=== PATIENT | male | born 1960 | race African-American/Black ===

== ENCOUNTER 2017-12-02 18:07 | Emergency (ER) | payer BC, OTHER ==
[2017-12-02] MEDS ORDERED: NORMAL SALINE 1000 ML 1,000 ML IV PRN (18:54)
--- NOTE | 2017-12-02 18:56 | ER Document Report ---
ED Medical Screen (RME) - General Chief Complaint: High Blood Sugar Stated Complaint: BLOOD SUGAR ISSUE Time Seen by Provider: 12/02/17 18:54 Notes: 57 years old male with history of diabetes, uncontrolled blood sugar, has been taking 3 tablets of glyburide 4 mg a day, he was prescribed only take 1. In spite of that sugar was 550 prior to coming to the ED, in the ER it was 350. Has no constitutional symptoms except frequency of urination. TRAVEL OUTSIDE OF THE [place] IN LAST 30 DAYS: No - Related Data Allergies/Adverse Reactions: aspirin Allergy (Verified 12/02/17 18:18) azithromycin [From Zithromax Z-Ranjith] Allergy (Verified 12/02/17 18:18) lisinopril Allergy (Verified 12/02/17 18:18) metformin Allergy (Verified 12/02/17 18:18) ibuprofen [From Motrin] Adverse Reaction (Intermediate, Verified 12/02/17 18:10) Edema Past Medical History - Social History Chew tobacco use (# tins/day): No Frequency of alcohol use: None - Past Medical History Cardiac Medical History: Reports: Hx Hypertension Endocrine Medical History: Reports: Hx Diabetes Mellitus Type 2 Renal/ Medical History: Denies: Hx Peritoneal Dialysis Psychiatric Medical History: Reports: Hx Anxiety Physical Exam - Vital signs Vitals: Temp Pulse Resp BP Pulse Ox 99.1 F 70 16 128/73 H 97 12/02/17 18:23 12/02/17 18:23 12/02/17 18:23 12/02/17 18:23 12/02/17 18:23 Course - Vital Signs Vital signs: Temp Pulse Resp BP Pulse Ox 99.1 F 70 16 128/73 H 97 12/02/17 18:23 12/02/17 18:23 12/02/17 18:23 12/02/17 18:23 12/02/17 18:23 Doctor's Discharge - Discharge Referrals: LULÚ VU PA-C [Primary Care Provider] - Follow up as needed
[2017-12-02 19:45] LABS: APPEARANCE,URINE CLEAR; BILIRUBIN,URINE NEGATIVE (NEGATIVE); COLOR,URINE STRAW; GLUCOSE, URINE >=500 mg/dL (NEGATIVE); KETONES,URINE NEGATIVE (NEGATIVE); LEUKOCYTE ESTERASE,URINE NEGATIVE (NEGATIVE); NITRITE,URINE NEGATIVE (NEGATIVE); PROTEIN,URINE NEGATIVE (NEGATIVE); URINE SPECIFIC GRAVITY 1.023; UROBILINOGEN,URINE NEGATIVE mg/dL (<2.0)
--- NOTE | 2017-12-02 19:48 | ER Document Report ---
ED Blood Sugar Problem - General Chief Complaint: High Blood Sugar Stated Complaint: BLOOD SUGAR ISSUE Time Seen by Provider: 12/02/17 18:54 Notes: Patient is a 57-year-old male comes emergency department for chief complaint of high blood sugar levels, states he has been averaging in the 500s this week, he has frequent urination but he denies nausea vomiting, abdominal pain, shortness of breath, chest pain, fever, or any other sick symptoms. He states he is on glimepiride 4 mg daily, he is taking 3 a day at times. He states he used to be on metformin but had kidney failure with this and was taken off. He has never been on insulin. He sees Dr. Heard. Remaining medical history includes hypertension, depression, on Abilify. Patient admits that his diet over the past week and even month has been poor and he has eaten a lot of things that " he should not". TRAVEL OUTSIDE OF THE [place] IN LAST 30 DAYS: No - Related Data Allergies/Adverse Reactions: aspirin Allergy (Verified 12/02/17 18:18) azithromycin [From Zithromax Z-Ranjith] Allergy (Verified 12/02/17 18:18) lisinopril Allergy (Verified 12/02/17 18:18) metformin Allergy (Verified 12/02/17 18:18) ibuprofen [From Motrin] Adverse Reaction (Intermediate, Verified 12/02/17 18:10) Edema Past Medical History - General Information source: Patient - Social History Smoking Status: Never Smoker Chew tobacco use (# tins/day): No Frequency of alcohol use: None Lives with: Family Family History: DM - Mother Patient has suicidal ideation: No Patient has homicidal ideation: No - Past Medical History Cardiac Medical History: Reports: Hx Hypertension Endocrine Medical History: Reports: Hx Diabetes Mellitus Type 2 Renal/ Medical History: Denies: Hx Peritoneal Dialysis Psychiatric Medical History: Reports: Hx Anxiety - Immunizations Hx Diphtheria, Pertussis, Tetanus Vaccination: Yes Hx Pneumococcal Vaccination: 04/05/14 Review of Systems - Review of Systems Constitutional: See HPI EENT: No symptoms reported Cardiovascular: No symptoms reported Respiratory: No symptoms reported Gastrointestinal: No symptoms reported Genitourinary: See HPI Male Genitourinary: No symptoms reported Musculoskeletal: No symptoms reported Skin: No symptoms reported Hematologic/Lymphatic: No symptoms reported Neurological/Psychological: No symptoms reported Physical Exam - Vital signs Vitals: Temp Pulse Resp BP Pulse Ox 99.1 F 70 16 128/73 H 97 12/02/17 18:23 12/02/17 18:23 12/02/17 18:23 12/02/17 18:23 12/02/17 18:23 - Notes Notes: GENERAL: Alert, interacts well. No acute distress. HEAD: Normocephalic, atraumatic. EYES: Pupils equal, round, and reactive to light. Extraocular movements intact. ENT: Oral mucosa moist, tongue midline. NECK: Full range of motion. Supple. Trachea midline. LUNGS: Clear to auscultation bilaterally, no wheezes, rales, or rhonchi. No respiratory distress. HEART: Regular rate and rhythm. No murmur ABDOMEN: Soft, non-tender. Non-distended. Bowel sounds present in all 4 quadrants. EXTREMITIES: Moves all 4 extremities spontaneously. No edema, normal radial and dorsalis pedis pulses bilaterally. No cyanosis. BACK: no cervical, thoracic, lumbar midline tenderness. No saddle anesthesia, normal distal neurovascular exam. NEUROLOGICAL: Alert and oriented x3. Normal speech. [cranial nerves II through XII grossly intact]. PSYCH: Normal affect, normal mood. SKIN: Warm, dry, normal turgor. No rashes or lesions noted. Course - Re-evaluation Re-evalutation: Patient is very well-appearing and pleasant on exam. Vital signs unremarkable. No current symptoms reported. CBC unremarkable. Urine shows glucose but is otherwise unremarkable. Chemistry shows hyperglycemia without acidosis. Venous blood gas unremarkable. A1c is very elevated. Patient was given insulin, IV fluids. Blood glucose is downtrending. Discussed with patient. He states he is ready to leave. He does have close follow-up with his primary care. He was given copy of his labs, advised to avoid carbohydrates, he admits he has been eating a lot of carbohydrates. Discussed return precautions, patient states understanding and agreement. - Vital Signs Vital signs: Temp Pulse Resp BP Pulse Ox 98.6 F 59 L 18 123/66 97 12/02/17 22:25 12/02/17 22:25 12/02/17 22:25 12/02/17 22:25 12/02/17 22:25 - Laboratory Result Diagrams: 12/02/17 19:57 12/02/17 19:57 Laboratory results interpreted by me: 12/02/17 12/02/17 12/02/17 18:44 19:19 19:57 RBC 4.33 L Hgb 12.1 L Hct 35.9 L RDW 14.8 H Sodium Glucose POC Glucose 337 H Hemoglobin A1c % Total Protein Urine Glucose (UA) >=500 H 12/02/17 12/02/17 12/02/17 19:57 19:57 21:30 RBC Hgb Hct RDW Sodium 136.6 L Glucose 320 H POC Glucose 281 H Hemoglobin A1c % 13.5 H Total Protein 8.5 H Urine Glucose (UA) Discharge - Discharge Clinical Impression: Hyperglycemia Condition: Stable Disposition: HOME, SELF-CARE Additional Instructions: You have been given IV fluids and insulin tonight. Your diabetes needs better control. Take your glimepiride as prescribed daily, avoid foods with carbohydrates, follow-up with your primary care tomorrow for additional evaluation and management. Return if you worsen including vomiting, abdominal pain, dizziness, fever, or any other concerning or worsening symptoms. Referrals: EARL HEARD MD [Primary Care Provider] - Follow up tomorrow
[2017-12-02 20:32] LABS: ABSOLUTE BASOPHILS # (AUTO) 0.1 10^3/uL (0.0-0.2); ABSOLUTE EOSINOPHILS # (AUTO) 0.1 10^3/uL (0.0-0.6); ABSOLUTE LYMPHOCYTES (AUTO) 2.9 10^3/uL (0.5-4.7); ABSOLUTE MONOCYTES (AUTO) 0.8 10^3/uL (0.1-1.4); ABSOLUTE NEUT (AUTO) 6.1 10^3/uL (1.7-8.2); BASOPHILS % (AUTO) 0.6 % (0-2); EOSINOPHILS % (AUTO) 1.1 % (0-6); HEMATOCRIT 35.9 % (37.9-51.0); HEMOGLOBIN 12.1 g/dL (13.5-17.0); LYMPHOCYTES % (AUTO) 29.1 % (13-45); MEAN CORPUSCULAR HGB CONC 33.8 g/dL (32.0-36.0); MEAN CORPUSCULAR VOLUME 83 fl (80-97); MONOCYTES % (AUTO) 7.7 % (3-13); PLATELET COUNT 331 10^3/uL (150-450); RED BLOOD COUNT 4.33 10^6/uL (4.35-5.55); RED CELL DISTRIBUTION WIDTH 14.8 % (11.5-14.0); SEGMENTED NEUTROPHILS % (AUTO) 61.5 % (42-78); TOTAL CELLS COUNTED % (AUTO) 100 %
[2017-12-02 20:35] LABS: VENOUS BLOOD BASE EXCESS -2.9 mmol/L; VENOUS BLOOD HCO3 22.6 mmol/L (20-32); VENOUS BLOOD PCO2 41.8 mmHg (35-63); VENOUS BLOOD PH 7.35 (7.30-7.42)
[2017-12-02 20:57] LABS: ALANINE AMINOTRANSFERASE 34 U/L (21-72); ALBUMIN 4.2 g/dL (3.5-5.0); ALKALINE PHOSPHATASE 102 U/L (38-126); ANION GAP 13 (5-19); ASPARTATE AMINO TRANSFERASE 30 U/L (17-59); BILIRUBIN,DIRECT 0.3 mg/dL (0.0-0.4); BILIRUBIN,TOTAL 0.3 mg/dL (0.2-1.3); BLOOD UREA NITROGEN 20 mg/dL (7-20); CALCIUM 9.4 mg/dL (8.4-10.2); CARBON DIOXIDE 24 mmol/L (22-30); CHLORIDE 100 mmol/L (98-107); GLUCOSE 320 mg/dL (75-110); POTASSIUM 4.2 mmol/L (3.6-5.0); SODIUM 136.6 mmol/L (137-145); TOTAL PROTEIN 8.5 g/dL (6.3-8.2)
[2017-12-02] MEDS: INSULIN REG, HUMAN 100 UNIT/ML 3 ML VIAL (PYX) SUBCUT ONE ×2 (21:21→21:32)
[2017-12-02] MEDS ORDERED: INSULIN REG, HUMAN 100 UNIT/ML 3 ML VIAL (PYX) SUBCUT ONE (21:31)
[2017-12-02 22:26] VITALS: BP 123/66
== END 2017-12-02 22:26 | disposition home or self-care (01) ==
LOC: ER 18:07
DX: E11.65 Type 2 diabetes mellitus with hyperglycemia (principal); R35.0 Frequency of micturition; I10 Essential (primary) hypertension; Z88.6 Allergy status to analgesic agent
CPT/HCPCS: 99285; 96360; 96361; 36415; 82962; 85025; 80053; 81001; 83036; 82803; J1815; J7030